=== PATIENT | female | born 1995 | race African-American/Black ===

== ENCOUNTER 2021-06-21 11:57 | Emergency (ER) | payer MEDICAID ==
[~2021-06-21] VITALS: Ht 165.1 cm; Wt 88.5 kg
[2021-06-21 11:58] VITALS: BP 130/81
--- NOTE | 2021-06-21 11:58 | NUR ---
Patient ambulated from [facility] onto bed 06
--- NOTE | 2021-06-21 12:00 | NUR ---
25 y/o F BIBA from [facility] c/o R shoulder pain s/p reaching in for a grocery bag and hearing a "pop." Patient A&Ox4, ambulatory, states similar incident in the past. States she immediately grabbed onto her arm after hearing the pop and began experiencing 10/10, aching/constant, non-radiating pain. EMS arrived and placed patient onto a shoulder sling. Patient with +CMS, limited ROM d/t sling placement, denies numbness/tingling. No medications prior to arrival. VSS; respirations even/unlabored. PMH/Sx/Meds: Denies NKA
--- NOTE | 2021-06-21 12:20 | NUR ---
RAD at bedside
--- NOTE | 2021-06-21 12:20 | NUR ---
Dr. Philip is evaluating patient at bedside
--- NOTE | 2021-06-21 12:30 | NUR ---
RAD at bedside for repeat XRAY
[2021-06-21] MEDS ORDERED: KETOROLAC 30 MG/ML VIAL IM ONE (12:35)
[2021-06-21] MEDS ORDERED: KETOROLAC 30 MG/ML VIAL ONE (12:38)
--- NOTE | 2021-06-21 12:49 | NUR ---
PER ERMD PT WAS PLACE OM A SLING AND PMCS WAS CHECKED BEFORE AND AFTER ALL WNL.
--- NOTE | 2021-06-21 13:20 | NUR ---
Patient to wait in lobby for taxi arrival.
[2021-06-21 13:23] VITALS: BP_DIAS 81
--- NOTE | 2021-06-21 13:23 | NUR ---
Patient discharged with v/s stable. Written and verbal after care instructions given and explained. Patient verbalized understanding. Ambulatory with steady gait. All questions addressed prior to discharge. Advised to follow up with PMD.
== END 2021-06-21 13:23 | disposition home or self-care (01) ==
LOC: MED 11:57
DX: S43.084A Other dislocation of right shoulder joint, initial encounter (principal); X50.9XXA Other and unspecified overexertion or strenuous movements or postures, initial encounter; Y93.89 Activity, other specified; Y92.89 Other specified places as the place of occurrence of the external cause; Y99.8 Other external cause status
CPT/HCPCS: 23650; 73020; 73030; 96372; 99284; J1885